=== PATIENT | male | born 1935 | race African-American/Black ===

== ENCOUNTER 2018-02-14 12:21 | Emergency (ER) | payer MEDICARE, BC ==
[~2018-02-14] VITALS: Ht 170.2 cm; Wt 98.0 kg
[~2018-02-14 12:21] MED LIST: AMLO1CAP61; ASPI-1158; ATOR-2; CLOP75TA16; HYDR12.54; METO100T3; VALS160T2
[2018-02-14] MEDS ORDERED: IBUPROFEN 600MG TABLET PO ONE (15:00)
[2018-02-14 15:34] VITALS: BP 158/72
== END 2018-02-14 15:35 | disposition home or self-care (01) ==
LOC: ER 12:21
DX: K64.4 Residual hemorrhoidal skin tags (principal); I10 Essential (primary) hypertension; Z98.890 Other specified postprocedural states
CPT/HCPCS: 99283

== ENCOUNTER 2018-05-04 07:55 | Emergency (ER) | payer MEDICARE, BC ==
[~2018-05-04] VITALS: Ht 170.2 cm; Wt 65.0 kg
[2018-05-04] MEDS ORDERED: ONDANSETRON 4MG ODT PO STA (08:33)
[2018-05-04 09:01] LABS: BASOPHILS % 0.3 % (0.0-2.0); HEMATOCRIT. 41.4 % (42.0-52.0); HEMOGLOBIN. 13.7 g/dL (14.0-18.0); LYMPHOCYTES % 15.5 % (20.0-50.0); MEAN CORPUSCULAR HEMOGLOBIN 32.6 pg (28.0-32.0); MEAN CORPUSCULAR VOLUME 98.5 fL (80.0-94.0); MEAN PLATELET VOLUME 8.2 fl (7.4-10.4); NEUTROPHILS % 77.2 % (40.0-76.0); PLATELET 191 x1000/uL (130-400); RED CELL DISTRIBUTION WIDTH 15.7 % (11.6-14.6)
[2018-05-04 09:02] LABS: CHLORIDE 106 mEq/L (98-107)
[2018-05-04 09:24] VITALS: BP 147/78
[2018-05-04 11:00] LABS: CLARITY URINE CLEAR (CLEAR); COLOR URINE YELLOW (YELLOW); KETONES URINE NEGATIVE (NEGATIVE); LEUKOCYTE ESTERASE URINE NEGATIVE (NEGATIVE); NITRITE URINE NEGATIVE (NEGATIVE); OCCULT BLOOD URINE NEGATIVE (NEGATIVE); PROTEIN URINE TRACE (NEGATIVE); SPECIFIC GRAVITY URINE 1.013 (1.005-1.030)
== END 2018-05-04 11:44 | disposition home or self-care (01) ==
LOC: ER 07:55
DX: R10.30 Lower abdominal pain, unspecified (principal); R11.0 Nausea; I10 Essential (primary) hypertension; I25.810 Atherosclerosis of coronary artery bypass graft(s) without angina pectoris; Z79.82 Long term (current) use of aspirin; Z79.899 Other long term (current) drug therapy
CPT/HCPCS: 36415; 80053; 81003; 83690; 85025; 85610; 99284; Q0162

== ENCOUNTER 2020-02-29 15:35 | Emergency (ER) | payer MEDICARE, BC, MEDICAID ==
[~2020-02-29] VITALS: Ht 172.7 cm; Wt 71.0 kg
[~2020-02-29 15:35] MED LIST changes: -CLOP75TA16; +CLOP75TA4
[2020-02-29] MEDS ORDERED: IBUPROFEN 600MG TABLET PO ONE (16:15)
[2020-02-29 17:23] VITALS: BP 168/77
== END 2020-02-29 17:30 | disposition home or self-care (01) ==
LOC: ER 15:35
DX: S82.831A Other fracture of upper and lower end of right fibula, initial encounter for closed fracture (principal); I11.9 Hypertensive heart disease without heart failure; Z95.1 Presence of aortocoronary bypass graft; W01.0XXA Fall on same level from slipping, tripping and stumbling without subsequent striking against object, initial encounter; Y93.89 Activity, other specified; Y92.488 Other paved roadways as the place of occurrence of the external cause
CPT/HCPCS: 29515; 73610; 73630; 99284

== ENCOUNTER 2023-11-09 23:21 | Inpatient (IN) | payer MEDICARE, BC ==
[~2023-11-09] VITALS: Ht 170.2 cm; Wt 68.0 kg
[~2023-11-09 23:21] MED LIST changes: -ASPI-1158; +ASPI-1406; +CLOP-31; -CLOP75TA4
[2023-11-10] VITALS (47 sets, daily range): BP systolic 65–106; BP diastolic 52–71; PULSE 79–88; RESP 18–30; TEMP 96–98.2; O2SAT 100
[2023-11-10 00:16] LABS: HEMATOCRIT. 29.8 % (42.0-52.0); HEMOGLOBIN. 10.2 g/dL (14.0-18.0); MEAN CORPUSCULAR HGB CONC 34.3 g/dL (31.0-37.0); MEAN CORPUSCULAR VOLUME 96.1 fL (80.0-94.0); MEAN PLATELET VOLUME 7.5 fl (7.4-10.4); PLATELET 197 x1000/uL (130-400); RED CELL DISTRIBUTION WIDTH 16.3 % (11.6-14.6)
[2023-11-10 00:21] LABS: DIFFERENTIAL COMMENT 1; WHITE BLOOD COUNT 1.6 x1000/uL (4.5-11.0)
[2023-11-10] MEDS: ONDANSETRON HCL 4MG/2ML INJ IV STA ×2 (00:23→02:41)
[2023-11-10 00:24] LABS: POTASSIUM 4.4 mEq/L (3.5-5.1)
[2023-11-10] MEDS: SODIUM CHLORIDE 0.9% 1,000 ML IV ONE (00:24)
[2023-11-10] MEDS: PANTOPRAZOLE SODIUM 40 MG/VIAL IV STA (00:24)
[2023-11-10] MEDS: MORPHINE SULFATE 4 MG/ML INJ (FOR IV/IM USE) IV STA ×2 (00:24→02:41)
[2023-11-10 00:25] LABS: CALCIUM 8.9 mg/dL (8.7-10.4)
[2023-11-10 00:30] LABS: CREATININE 1.9 mg/dL (0.6-1.3)
[2023-11-10 00:42] LABS: ALANINE AMINOTRANSFERASE 25 IU/L (10-49); ALBUMIN 3.4 g/dL (3.2-4.8); ASPARTATE AMINOTRANSFERASE 23 IU/L (<34); BILIRUBIN DIRECT 0.4 mg/dL (<=3.0); BILIRUBIN TOTAL 0.7 mg/dL (0.1-1.0); PLATELET ESTIMATE NORMAL; PROTEIN TOTAL 5.9 g/dL (6.0-8.3)
[2023-11-10 01:38] LABS: INR 1.1; PROTHROMBIN TIME 11.9 sec (9.6-11.0)
[2023-11-10] MEDS: METRONIDAZOLE 500 MG PREMIX 100 ML IV ONE (02:45)
[2023-11-10] MEDS: SODIUM CHLORIDE 0.9% 1000ML BAG (SEPSIS BOLUS) IV ONE (02:57)
[2023-11-10 03:03] LABS: LACTIC ACID 2.2 mmol/L (0.4-2.0)
[2023-11-10] MEDS ORDERED: MORPHINE SULFATE 4 MG/ML INJ (FOR IV/IM USE) IV PRN ×2 (03:15→12:15)
[2023-11-10] MEDS ORDERED: ACETAMINOPHEN 650MG SUPP PR PRN ×2 (03:15)
[2023-11-10] MEDS ORDERED: ONDANSETRON HCL 4MG/2ML INJ IV PRN ×2 (03:15→12:15)
[2023-11-10] MEDS ORDERED: DIPHENHYDRAMINE 50MG/ML VIAL IV PRN (03:15)
[2023-11-10] MEDS: PIPERACILLIN/TAZO 3.375G/50ML 50 ML IV ONE ×2 (04:00→09:40)
[2023-11-10] MEDS ORDERED: METRONIDAZOLE 500 MG PREMIX 100 ML IV SCH ×2 (04:30→14:00)
[2023-11-10] MEDS: PIPERACILLIN/TAZO 3.375G/50ML 50 ML IV NR (04:53)
[2023-11-10] MEDS: SODIUM CHLORIDE 0.9% 1,000 ML IV SCH (04:54)
[2023-11-10 05:07] LABS: CLARITY URINE CLEAR (CLEAR); COLOR URINE YELLOW (YELLOW); GLUCOSE URINE NEGATIVE (NEGATIVE); KETONES URINE NEGATIVE (NEGATIVE); PROTEIN URINE NEGATIVE (NEGATIVE); SPECIFIC GRAVITY URINE 1.014 (1.005-1.030)
[2023-11-10 05:08] LABS: LEUKOCYTE ESTERASE URINE 3+ (NEGATIVE); NITRITE URINE NEGATIVE (NEGATIVE); OCCULT BLOOD URINE NEGATIVE (NEGATIVE); UROBILINOGEN URINE 0.2 E.U./dL (0.2-1.0)
[2023-11-10 05:18] LABS: SQUAMOUS EPITHELIAL CELL URINE 2+ /lpf (RARE/1+)
[2023-11-10 05:19] LABS: BACTERIA URINE 2+; RBC URINE 0-2 /hpf (0-2)
[2023-11-10] MEDS ORDERED: PROPOFOL 10MG/ML 100ML 100 ML IV ONE (07:15)
[2023-11-10] MEDS: NOREPINEPHRINE 8MG/250ML PMX 250 ML IV STA (07:23)
[2023-11-10] MEDS ORDERED: BUPIVACAINE HCL/PF 0.5% (5MG/ML) 10ML ONE (07:48)
[2023-11-10] MEDS ORDERED: SKIN ADHESIVE 0.7 GM EA TOP ONE (07:48)
[2023-11-10] MEDS ORDERED: IPRATROPIUM/ALBUTEROL 0.5-3(2.5)MG/3ML NEB HHN PRN (09:15)
[2023-11-10 09:22] LABS: BG BASE EXCESS -11.2 mmol/L (-2.0-2.0); BG CARBOXYHEMOGLOBIN 0.3 % (0.5-1.5); BG DEOXYHEMOGLOBIN 0.5 % (0.0-5.0); BG FRACTION INSPIRED OXYGEN 100; BG HCO3 ACT 14.2 mmol/L (22.0-26.0); BG METHEMOGLOBIN 0.7 % (0.0-1.5); BG OXYGEN SATURATION 99.5 % (92.0-98.5); BG OXYHEMOGLOBIN 98.5 % (94.0-97.0); BG PH 7.294 (7.350-7.450); BG PO2 488.7 mmHg (75.0-100.0); BG SAMPLE SITE LEFT BRACHIAL; BG TOTAL HEMOGLOBIN 8.3 g/dL (12.0-18.0); BG VENT MODE VENT - AC
[2023-11-10] MEDS: PANTOPRAZOLE SODIUM 40 MG/VIAL IV SCH (09:40)
[2023-11-10] MEDS: NOREPINEPHRINE 8MG/250ML PMX 250 ML IV PRN (09:42)
[2023-11-10] MEDS: VASOPRESSIN 20 UNIT in SODIUM CHLORIDE 0.9% 99 ML IV PRN (10:03)
[2023-11-10] MEDS: MIDAZOLAM 100MG/100ML PMX 100 ML IV PRN (10:33)
[2023-11-10] MEDS: FENTANYL 2500MCG/250ML PMX 250 ML IV PRN (10:34)
[2023-11-10] MEDS ORDERED: SODIUM CHLORIDE 0.9% 1,000 ML IV SCH (11:00)
[2023-11-10] MEDS: DEXT 5%/0.9% NACL 1,000 ML IV SCH (11:38)
[2023-11-10] MEDS: NOREPINEPHRINE 32 MG in DEXT 5% WATER 218 ML IV PRN ×2 (11:39→18:34)
[2023-11-10] MEDS ORDERED: PROPOFOL 200MG/20ML VIAL IV ONE (11:43)
[2023-11-10] MEDS ORDERED: FENTANYL CITRATE/PF 50MCG/ML 2ML VIAL ONE (11:43)
[2023-11-10] MEDS ORDERED: ROCURONIUM BROMIDE 10MG/ML VIAL 5ML IV ONE (11:45)
[2023-11-10] MEDS: IPRATROPIUM/ALBUTEROL 0.5-3(2.5)MG/3ML NEB HHN SCH (12:00)
[2023-11-10] MEDS ORDERED: ALBUMIN HUMAN 12.5GM/50ML (25%) IV ONE (12:09)
[2023-11-10] MEDS ORDERED: ALBUMIN HUMAN 12.5G/250ML (5%) IV ONE (12:10)
[2023-11-10] MEDS ORDERED: MORPHINE SULFATE 2 MG/ML CPJ (NOT FOR IM USE) IV PRN (12:15)
[2023-11-10] MEDS: DEXT 5%/0.45% NACL KCL 20MEQ/L 1,000 ML IV SCH (14:20)
[2023-11-10] MEDS: PIPERACILLIN/TAZO 3.375G/50ML 50 ML IV SCH (14:20)
[2023-11-10] MEDS ORDERED: NALOXONE HCL 0.4MG/ML VIAL IV PRN (14:30)
[2023-11-10] MEDS: SODIUM BICARBONATE 8.4% 1 MEQ/ML 50ML SYR IV SCH (14:48)
[2023-11-10] MEDS: PHENYLEPHRINE 100 MG in DEXT 5% WATER 240 ML IV PRN (14:49)
[2023-11-10] MEDS ORDERED: FAMOTIDINE 20MG/2ML VIAL IV SCH (21:00)
[2023-11-11] VITALS (11 sets, daily range): BP systolic 0–73; BP diastolic 0–57; PULSE 40–126; RESP 18–34
[2023-11-11 03:08] LABS: BASOPHILS % 0.3 % (0.0-2.0); DIFFERENTIAL COMMENT 0; EOSINOPHILS % 1.6 % (0.0-5.0); HEMATOCRIT. 24.5 % (42.0-52.0); HEMOGLOBIN. 8.1 g/dL (14.0-18.0); LYMPHOCYTES % 31.7 % (20.0-50.0); MEAN PLATELET VOLUME 8.5 fl (7.4-10.4); MONOCYTES % 2.1 % (2.0-8.0); NEUTROPHILS % 64.3 % (40.0-76.0); PLATELET 91 x1000/uL (130-400); RED BLOOD CELL COUNT 2.37 mill/uL (4.7-6.1); RED CELL DISTRIBUTION WIDTH 17.9 % (11.6-14.6); WHITE BLOOD COUNT 4.4 x1000/uL (4.5-11.0)
[2023-11-11 03:51] LABS: CHLORIDE 111 mEq/L (98-107); POTASSIUM 5.5 mEq/L (3.5-5.1); SODIUM 141 mEq/L (136-145)
[2023-11-11 03:52] LABS: CARBON DIOXIDE 13 mEq/L (21-32)
[2023-11-11 03:57] LABS: GLUCOSE 193 mg/dL (70-105); UREA NITROGEN BLOOD 33 mg/dL (9-23)
[2023-11-11 03:59] LABS: ALANINE AMINOTRANSFERASE 55 IU/L (10-49); ALBUMIN 1.8 g/dL (3.2-4.8); ASPARTATE AMINOTRANSFERASE 105 IU/L (<34); BILIRUBIN TOTAL 0.4 mg/dL (0.1-1.0)
[2023-11-11 04:40] LABS: CREATININE 2.7 mg/dL (0.6-1.3)
[2023-11-11 04:41] LABS: PHOSPHORUS 11.2 mg/dL (2.5-4.9)
[2023-11-11] MEDS ORDERED: FAMOTIDINE 20MG/2ML VIAL IV SCH (09:00)
== END 2023-11-11 04:10 | DRG 853 ==
LOC: ER 23:21 → MICUNO 11-10 01:57 → EDBEDREQTM 11-10 02:19 → EDBEDREQSVC 11-10 02:19 → EDBEDREQ 11-10 02:19 → EDBEDREQTM 11-10 07:17 → EDBEDREQSVC 11-10 07:17
PROVIDERS: ADMIT Internal Medicine; ATTEND Internal Medicine
PROC: 0DSN0ZZ Reposition Sigmoid Colon, Open Approach (ICD-10-PCS; principal; 2023-11-10)
PROC: 5A1935Z Respiratory Ventilation, Less than 24 Consecutive Hours (ICD-10-PCS; 2023-11-10)
PROC: 0BH18EZ Insertion of Endotracheal Airway into Trachea, Via Natural or Artificial Opening Endoscopic (ICD-10-PCS; 2023-11-10)
PROC: 5A12012 Performance of Cardiac Output, Single, Manual (ICD-10-PCS; 2023-11-10)
PROC: 02HV33Z Insertion of Infusion Device into Superior Vena Cava, Percutaneous Approach (ICD-10-PCS; 2023-11-10)
PROC: 0D1N0Z4 Bypass Sigmoid Colon to Cutaneous, Open Approach (ICD-10-PCS; 2023-11-11)
PROC: 0DBN0ZZ Excision of Sigmoid Colon, Open Approach (ICD-10-PCS; 2023-11-11)
DX: A41.9 Sepsis, unspecified organism (principal); G93.41 Metabolic encephalopathy; R65.21 Severe sepsis with septic shock; J96.00 Acute respiratory failure, unspecified whether with hypoxia or hypercapnia; E87.1 Hypo-osmolality and hyponatremia; K57.20 Diverticulitis of large intestine with perforation and abscess without bleeding; N17.9 Acute kidney failure, unspecified; N40.0 Benign prostatic hyperplasia without lower urinary tract symptoms; K80.20 Calculus of gallbladder without cholecystitis without obstruction; I46.9 Cardiac arrest, cause unspecified; I25.10 Atherosclerotic heart disease of native coronary artery without angina pectoris; I10 Essential (primary) hypertension; D72.819 Decreased white blood cell count, unspecified; D64.9 Anemia, unspecified; Z95.1 Presence of aortocoronary bypass graft; Z95.5 Presence of coronary angioplasty implant and graft
CPT/HCPCS: 31500; 36415; 36600; 71045; 74176; 76705; 80048; 80053; 80076; 81003; 82375; 82805; 82962; 83605; 83735; 84100; 84145; 85018; 85025; 86850; 86900; 87070; 87075; 87186; 88307; 93005; 93970; 94002; 94003; 94640; 99291; C9113; J2250; J2270; J2370; J2405; J2543; J2704; J3010; J3490; J7030; J7050; J7060; P9041; P9047; A4315